=== PATIENT | male | born 1985 | race Two or more races ===

== ENCOUNTER 2020-09-02 13:52 | Emergency (ER) | payer OTHER ==
[~2020-09-02] VITALS: Ht 172.7 cm; Wt 81.6 kg
[2020-09-02 14:03] VITALS: BP 124/76
--- NOTE | 2020-09-02 15:34 | NUR ---
Patient discharged to home in stable condition. Written and verbal after care instructions given. Patient verbalizes understanding of instruction.
== END 2020-09-02 15:34 | disposition home or self-care (01) ==
LOC: ER 13:55
DX: S43.101A Unspecified dislocation of right acromioclavicular joint, initial encounter (principal); X58.XXXA Exposure to other specified factors, initial encounter; Y93.89 Activity, other specified; Y92.89 Other specified places as the place of occurrence of the external cause; Y99.8 Other external cause status
CPT/HCPCS: 73030-TC